=== PATIENT | male | born 1960 | race Caucasian/White ===

== ENCOUNTER 2018-02-16 00:49 | Emergency (ER) | payer OTHER ==
[2018-02-16 04:13] LABS: BUN/Creatinine Ratio 19; Blood Urea Nitrogen 17 mg/dL (9-20); Calcium 9.1 mg/dL (8.4-10.2); Hemolysis Index 16
[2018-02-16 04:20] LABS: Hematocrit 45.6 % (35.5-45.6); Hemoglobin 15.8 gm/dl (11.8-15.2); Mean Corpuscular HGB Conc 35 % (32-34); Mean Corpuscular Hemoglobin 30 pg (28-32); Mean Corpuscular Volume 88 fl (84-94); Red Blood Count 5.21 M/mm3 (3.65-5.03)
[2018-02-16 04:21] LABS: Eosinophils % (Auto) 1.9 % (0.0-4.3); Lymphocytes % (Auto) 43.8 % (13.4-35.0); Monocytes % (Auto) 10.5 % (0.0-7.3); Platelet Count 232 K/mm3 (140-440); Red Cell Distribution Width 13.3 % (13.2-15.2)
[2018-02-16 04:22] LABS: Basophils % (Auto) 0.8 % (0.0-1.8); Eosinophils # (Auto) 1.9 K/mm3 (0.0-0.4); Lymphocytes # (Auto) 43.8 K/mm3 (1.2-5.4); Monocytes # (Auto) 10.5 K/mm3 (0.0-0.8)
--- NOTE | 2018-02-16 06:35 | Emergency Department Report ---
ED General Adult HPI - General Chief complaint: High BP Stated complaint: POSS HIGH BP Time Seen by Provider: 02/16/18 06:35 Source: patient Mode of arrival: Ambulatory Limitations: No Limitations - History of Present Illness Initial comments: The patient came to the emergency room because his blood pressure is high. He denies any chest pain, shortness of breath, abdominal pain, nausea or vomiting. -: Sudden Severity scale (0 -10): 0 Consistency: constant Improves with: none Worsens with: none Associated Symptoms: denies other symptoms Treatments Prior to Arrival: none - Related Data Home Medications Medication Instructions Recorded Confirmed Last Taken Carvedilol 12.5 mg PO BID 02/16/18 02/16/18 02/16/18 Furosemide [Lasix TAB] 40 mg PO BID 02/16/18 02/16/18 02/16/18 Olmesartan (Nf) [Benicar (Nf)] 40 mg PO BID 02/16/18 02/16/18 02/16/18 Potassium Chloride [K-Dur] 40 meq PO BID 02/16/18 02/16/18 02/15/18 Previous Rx's Medication Instructions Recorded Last Taken Type Aspirin [Aspir-Low] 81 mg PO DAILY #30 tablet. 02/16/18 Unknown Rx cloNIDine [Catapres] 0.1 mg PO BID #60 tablet 02/16/18 Unknown Rx Allergies Allergy/AdvReac Type Severity Reaction Status Date / Time No Known Allergies Allergy Unverified 02/16/18 02:47 ED Review of Systems ROS: Stated complaint: POSS HIGH BP Other details as noted in HPI Comment: All other systems reviewed and negative Constitutional: denies: chills, fever Eyes: denies: eye pain ENT: denies: ear pain Respiratory: orthopnea. denies: cough, shortness of breath Cardiovascular: denies: chest pain, palpitations, dyspnea on exertion Endocrine: no symptoms reported Gastrointestinal: denies: abdominal pain, nausea, vomiting, diarrhea, constipation Genitourinary: denies: urgency, dysuria, frequency Musculoskeletal: denies: back pain, joint swelling Skin: denies: rash, lesions Neurological: denies: headache, weakness, numbness Psychiatric: denies: anxiety, depression Hematological/Lymphatic: denies: easy bleeding, easy bruising ED Past Medical Hx - Past Medical History Previous Medical History?: Yes Hx Hypertension: Yes - Surgical History Past Surgical History?: Yes Additional Surgical History: rt eye - Social History Smoking Status: Never Smoker Substance Use Type: Alcohol - Medications Home Medications: Home Medications Medication Instructions Recorded Confirmed Last Taken Type Aspirin [Aspir-Low] 81 mg PO DAILY #30 tablet. 02/16/18 Unknown Rx Carvedilol 12.5 mg PO BID 02/16/18 02/16/18 02/16/18 History Furosemide [Lasix TAB] 40 mg PO BID 02/16/18 02/16/18 02/16/18 History Olmesartan (Nf) [Benicar (Nf)] 40 mg PO BID 02/16/18 02/16/18 02/16/18 History Potassium Chloride [K-Dur] 40 meq PO BID 02/16/18 02/16/18 02/15/18 History cloNIDine [Catapres] 0.1 mg PO BID #60 tablet 02/16/18 Unknown Rx ED Physical Exam - General Limitations: No Limitations General appearance: alert, in no apparent distress - Head Head exam: Present: atraumatic, normocephalic, normal inspection - Eye Eye exam: Present: normal appearance, PERRL, EOMI Pupils: Present: normal accommodation - ENT ENT exam: Present: normal exam, normal orophraynx, mucous membranes moist - Neck Neck exam: Present: normal inspection, full ROM. Absent: tenderness - Respiratory Respiratory exam: Present: normal lung sounds bilaterally. Absent: respiratory distress, wheezes, rales, rhonchi, stridor - Cardiovascular Cardiovascular Exam: Present: regular rate, normal rhythm, normal heart sounds - GI/Abdominal GI/Abdominal exam: Present: soft, normal bowel sounds. Absent: distended, tenderness, guarding, rebound, rigid - Extremities Exam Extremities exam: Present: normal inspection, full ROM, normal capillary refill , pedal edema. Absent: tenderness - Back Exam Back exam: Present: normal inspection, full ROM. Absent: tenderness - Neurological Exam Neurological exam: Present: alert, oriented X3, CN II-XII intact - Psychiatric Psychiatric exam: Present: normal affect, normal mood - Skin Skin exam: Present: warm, dry, intact, normal color. Absent: rash ED Course Vital Signs 02/16/18 02/16/18 02/16/18 02:47 06:28 06:30 Temperature 97.9 F 98.0 F Pulse Rate 85 79 Respiratory 16 Rate Blood Pressure 168/112 189/110 Blood Pressure 190/101 [Left] O2 Sat by Pulse 98 97 94 Oximetry 02/16/18 02/16/18 02/16/18 07:31 08:01 08:31 Temperature Pulse Rate 80 81 79 Respiratory 25 H 25 H 21 Rate Blood Pressure 194/106 200/113 185/85 Blood Pressure [Left] O2 Sat by Pulse 94 92 93 Oximetry 02/16/18 02/16/18 02/16/18 09:01 09:31 10:01 Temperature Pulse Rate 77 81 77 Respiratory 26 H 26 H 29 H Rate Blood Pressure 163/74 154/85 144/81 Blood Pressure [Left] O2 Sat by Pulse 91 96 87 Oximetry ED Medical Decision Making - Lab Data Result diagrams: 02/16/18 03:28 02/16/18 03:28 - Radiology Data Radiology results: report reviewed, image reviewed - Medical Decision Making Hypertension. Congestive heart failure. Critical care attestation.: If time is entered above; I have spent that time in minutes in the direct care of this critically ill patient, excluding procedure time. ED Disposition Clinical Impression: CHF (congestive heart failure) Qualifiers: Heart failure type: unspecified Heart failure chronicity: chronic Qualified Code(s): I50.9 - Heart failure, unspecified Hypertension Qualifiers: Hypertension type: unspecified Qualified Code(s): I10 - Essential (primary) hypertension Disposition: -01 TO HOME OR SELFCARE Is pt being admited?: No Does the pt Need Aspirin: Yes Condition: Stable Instructions: Heart Failure (ED), Hypertension (ED) Additional Instructions: Please follow up with your regular doctor today. Return to the ED if your condition worsens. Prescriptions: Aspirin [Aspir-Low] 81 mg PO DAILY #30 tablet. cloNIDine [Catapres] 0.1 mg PO BID #60 tablet Referrals: PRIMARY CARE, [Primary Care Provider] - 3-5 Days Time of Disposition: 10:48
[2018-02-16] MEDS ORDERED: LASIX IV ONE (07:04)
[2018-02-16] MEDS ORDERED: BABY ASPIRIN PO ONE (07:04)
[2018-02-16] MEDS ORDERED: CATAPRES PO ONE (07:04)
[2018-02-16 07:26] LABS: Bilirubin,Urine NEG (Negative); Blood,Urine SM (Negative); Color,Urine Yellow (Yellow); Mucus,Urine FEW /HPF; Urobilinogen,Urine < 2.0 mg/dL (<2.0); WBC,Urine < 1.0 /HPF (0.0-6.0)
--- NOTE | 2018-02-16 07:56 | XRay Report ---
AP CHEST: HISTORY: Hypertension Heart size and central pulmonary veins are borderline. The lungs are clear. No evidence for pneumonia, CHF or pneumothorax. The bony structures are within normal limits. IMPRESSION: Borderline heart size and pulmonary venous structures. No CHF.
[2018-02-16 07:58] LABS: INR 0.92 (0.87-1.13)
[2018-02-16 07:59] LABS: Partial Thromboplastin Time 25.2 Sec. (24.2-36.6)
[2018-02-16 10:19] VITALS: BP 144/81
== END 2018-02-16 11:30 | disposition home or self-care (01) ==
LOC: ED 00:49
DX: I11.0 Hypertensive heart disease with heart failure (principal); I50.9 Heart failure, unspecified
CPT/HCPCS: 36415; 71045; 80048; 81001; 83880; 84484; 85025; 85610; 85730; 96374; 99284; J1940

== ENCOUNTER 2018-12-22 12:31 | Emergency (ER) | payer OTHER ==
[2018-12-22] MEDS ORDERED: CATAPRES PO ONE (12:56)
[2018-12-22] MEDS ORDERED: LASIX IV ONE (12:56)
--- NOTE | 2018-12-22 13:02 | Emergency Department Report ---
ED General Adult HPI - General Chief complaint: Extremity Injury, Upper Stated complaint: CHEST PAIN Time Seen by Provider: 12/22/18 12:48 Source: patient Mode of arrival: Ambulatory Limitations: No Limitations - History of Present Illness Initial comments: 58 year old male with a past medical history obesity and hypertension presents to the hospital complaining of elevated blood pressure. Patient takes his blood pressure daily and noticed it was high today. For the past 3 days he's been out Lasix and other BP/diuretic medication. The past 3 days he has been having worsening lower extremity swelling. He has complaints of paresthesias to the fo urth and fifth fingers of his left hand. He denies chest pain, shortness of breath, blurred vision, or headache. Patient did take his Benicar 30 minutes prior to arrival. pt states he takes clonidine 0.5 mg every other day. Severity scale (0 -10): 10 - Related Data Previous Rx's Medication Instructions Recorded Last Taken Type Aspirin [Aspir-Low] 81 mg PO DAILY #30 tablet. 02/16/18 Unknown Rx Furosemide [Lasix TAB] 40 mg PO BID #60 tablet 12/22/18 Unknown Rx Olmesartan (Nf) [Benicar] 40 mg PO DAILY #30 tablet 12/22/18 Unknown Rx Potassium Chloride [K-Dur] 20 meq PO DAILY #14 tablet 12/22/18 Unknown Rx cloNIDine [Catapres] 0.2 mg PO BID #60 tablet 12/22/18 Unknown Rx Allergies Allergy/AdvReac Type Severity Reaction Status Date / Time No Known Allergies Allergy Verified 12/22/18 12:32 ED Review of Systems ROS: Stated complaint: CHEST PAIN Other details as noted in HPI Comment: All other systems reviewed and negative ED Past Medical Hx - Past Medical History Hx Hypertension: Yes - Surgical History Additional Surgical History: rt eye - Social History Smoking Status: Never Smoker Substance Use Type: Alcohol - Medications Home Medications: Home Medications Medication Instructions Recorded Confirmed Last Taken Type Aspirin [Aspir-Low] 81 mg PO DAILY #30 tablet. 02/16/18 12/22/18 Unknown Rx Furosemide [Lasix TAB] 40 mg PO BID #60 tablet 12/22/18 Unknown Rx Olmesartan (Nf) [Benicar] 40 mg PO DAILY #30 tablet 12/22/18 Unknown Rx Potassium Chloride [K-Dur] 20 meq PO DAILY #14 tablet 12/22/18 Unknown Rx cloNIDine [Catapres] 0.2 mg PO BID #60 tablet 12/22/18 Unknown Rx ED Physical Exam - General Limitations: No Limitations - Other Other exam information: General: No limitations, patient is alert in no acute distress Head exam: Atraumatic, normocephalic Eyes exam: Normal appearance, pupils equal reactive to light, extraocular movements intact ENT: Moist mucous membrane, normal oropharynx Neck exam: Normal inspection, full range of motion, no meningismus nontender Respiratory exam: Clear to auscultation bilateral, no wheezes, rales, crackles Cardiovascular: Normal rate and rhythm, normal heart sounds Abdomen: Soft, nondistended, and nontender, with normal bowel sounds, no rebound, or guarding Extremity: Full range of motion normal inspection no deformity, bilateral lower extremity swelling Back: Normal Inspection, full range of motion, no tenderness Neurologic: Alert, oriented x3, cranial nerves intact, 5/5 upper and lower extremity strength. Sensation to pinprick is intact and equal bilaterally. Psychiatric: normal affect, normal mood Skin: Warm, dry, intact ED Course Vital Signs 12/22/18 12/22/18 12:43 14:29 Temperature 98.4 F Pulse Rate 103 H 90 Respiratory 22 20 Rate Blood Pressure 239/141 160/104 [Left] O2 Sat by Pulse 98 97 Oximetry ED Medical Decision Making - Lab Data Result diagrams: 12/22/18 13:13 12/22/18 13:13 Lab Results 12/22/18 12/22/18 12/22/18 Range/Units 13:13 13:13 13:13 WBC 7.0 (4.5-11.0) K/mm3 RBC 4.91 (3.65-5.03) M/mm3 Hgb 15.4 H (11.8-15.2) gm/dl Hct 42.7 (35.5-45.6) % MCV 87 (84-94) fl MCH 31 (28-32) pg MCHC 36 H (32-34) % RDW 13.7 (13.2-15.2) % Plt Count 248 (140-440) K/mm3 PT 12.7 (12.2-14.9) Sec. INR 0.98 (0.87-1.13) Sodium 137 (137-145) mmol/L Potassium 3.6 (3.6-5.0) mmol/L Chloride 99.8 (98-107) mmol/L Carbon Dioxide 23 (22-30) mmol/L Anion Gap 18 mmol/L BUN 11 (9-20) mg/dL Creatinine 0.9 (0.8-1.5) mg/dL Estimated GFR > 60 ml/min BUN/Creatinine Ratio 12 % Glucose 98 (75-100) mg/dL Calcium 8.4 (8.4-10.2) mg/dL Troponin T < 0.010 (0.00-0.029) ng/mL - EKG Data -: EKG Interpreted by Me EKG shows normal: sinus rhythm, axis (qrs 14), QRS complexes (qrsd 110), ST-T waves (no stemi) Rate: normal (93) - EKG Data When compared to previous EKG there are: previous EKG unavailable - Radiology Data Radiology results: report reviewed CHEST 1 VIEW INDICATION: Hypertension COMPARISON: AP chest report dated 02/16/2018 FINDINGS: Support devices: None. Heart: Borderline to mild cardiomegaly. Lungs/Pleura: Mild central pulmonary venous congestion is identified. The lungs are clear. No evidence for infiltrate, pleural effusion or pneumothorax. Additional findings: None. IMPRESSION: Mild cardiomegaly and central pulmonary venous congestion. Lungs clear. - Medical Decision Making Patient had significant diuresis after IV Lasix and improved blood pressure after clonidine 0.2 mg. Patient's medications will be refilled. His Lasix 40 mga day will be continued. His office that he takes Benicar 40 mg twice a day. They recommended maximum daily dose is 40 mg per day. Patient will be restarted on 40 mg once a day. Patient will also be placed on clonidine 0.2 mg twice a day for blood pressure control. I explained that he is to continue to monitor his blood pressure and keep a log and take the info to his PMD for med adjustment. potassium changed from 20mg bid to 20mg qd. pt will need close f/u since his med doses are atypical. I made adjustments based on recommended doses and advised follow-up with primary care doctor - Differential Diagnosis hypertensive emergency, medication noncomplianc, radiculopathy Critical Care Time: No Critical care attestation.: If time is entered above; I have spent that time in minutes in the direct care of this critically ill patient, excluding procedure time. ED Disposition Clinical Impression: Uncontrolled hypertension, Paresthesia Disposition: DC-01 TO HOME OR SELFCARE Is pt being admited?: No Does the pt Need Aspirin: No Condition: Stable Instructions: Hypertension (ED), Paresthesia (ED) Additional Instructions: Take the medication as prescribed. Follow up with your doctor or the clinic/doctor provided. Return if symptoms worsen as indicated by your discharge instructions. Keep a log of your blood pressure with 3 times a day measurements. Follow-up with the primary care doctor with this information for further medication adjustment. Prescriptions: Olmesartan (Nf) [Benicar] 40 mg PO DAILY #30 tablet cloNIDine [Catapres] 0.2 mg PO BID #60 tablet Potassium Chloride [K-Dur] 20 meq PO DAILY #14 tablet Furosemide [Lasix TAB] 40 mg PO BID #60 tablet Referrals: ESTRELLITA ROMEROT[facility] MD [facility] [Referring] - 3-5 Days PEDRO HOU DO [Staff Physician] - 3-5 Days Time of Disposition: 15:04
[2018-12-22 13:34] LABS: Mean Corpuscular HGB Conc 36 % (32-34); Mean Corpuscular Volume 87 fl (84-94); Platelet Count 248 K/mm3 (140-440); Red Blood Count 4.91 M/mm3 (3.65-5.03); Red Cell Distribution Width 13.7 % (13.2-15.2)
[2018-12-22 13:44] LABS: Hematocrit 42.7 % (35.5-45.6); Hemoglobin 15.4 gm/dl (11.8-15.2)
[2018-12-22 13:48] LABS: INR 0.98 (0.87-1.13)
[2018-12-22 13:57] LABS: BUN/Creatinine Ratio 12; Blood Urea Nitrogen 11 mg/dL (9-20); Calcium 8.4 mg/dL (8.4-10.2); Hemolysis Index 52
--- NOTE | 2018-12-22 14:37 | XRay Report ---
CHEST 1 VIEW INDICATION: Hypertension COMPARISON: AP chest report dated 02/16/2018 FINDINGS: Support devices: None. Heart: Borderline to mild cardiomegaly. Lungs/Pleura: Mild central pulmonary venous congestion is identified. The lungs are clear. No evidenc e for infiltrate, pleural effusion or pneumothorax. Additional findings: None. IMPRESSION: Mild cardiomegaly and central pulmonary venous congestion. Lungs clear. Signer Name: Romain Heath Jr, MD Signed: 12/22/2018 2:32 PM Workstation Name: [id number]
[2018-12-22 15:19] VITALS: BP 178/108
[2018-12-22 16:24] LABS: Basophils % (Manual) 0 % (0.0-1.8); Total Cells Counted 100
[2018-12-22 16:26] LABS: Anisocytosis Few; Stomatocytes Rare
== END 2018-12-22 15:19 | disposition home or self-care (01) ==
LOC: ED 12:31
DX: I10 Essential (primary) hypertension (principal); R20.2 Paresthesia of skin; Z79.899 Other long term (current) drug therapy
CPT/HCPCS: 36415; 71045; 80048; 84484; 85007; 85025; 85610; 93005; 93010; 96374; 99284; J1940

== ENCOUNTER 2019-09-03 17:02 | Emergency (ER) | payer SELFPAY ==
[2019-09-03] MEDS ORDERED: hydrALAZINE 20 MG/1 ML INJ IV ONE ×2 (17:31→19:41)
[2019-09-03] MEDS ORDERED: OXYMETAZOLINE 0.05% NASAL SPRAY NS ONE (17:31)
--- NOTE | 2019-09-03 17:42 | Emergency Department Report ---
HPI - General Chief Complaint: Nosebleed Time Seen by Provider: 09/03/19 17:31 - HPI HPI: 58-year-old male presents to the emergency department via EMS from home with complaint of nasal bleeding that started about 1 hour prior to presentation. The patient also presents with elevated blood pressure despite taking his blood pressure medications this morning. He has a history of hypertension. He has otherwise not taken anything for symptoms prior to presentation. His primary care physician is Dr. Hermann Guthrie. ED Past Medical Hx - Past Medical History Hx Hypertension: Yes - Surgical History Additional Surgical History: rt eye - Social History Smoking Status: Former Smoker Substance Use Type: None - Medications Home Medications: Home Medications Medication Instructions Recorded Confirmed Last Taken Type Aspirin [Aspir-Low] 81 mg PO DAILY #30 tablet. 02/16/18 12/22/18 Unknown Rx Furosemide [Lasix TAB] 40 mg PO BID #60 tablet 12/22/18 Unknown Rx Olmesartan (Nf) [Benicar] 40 mg PO DAILY #30 tablet 12/22/18 Unknown Rx Potassium Chloride [K-Dur] 20 meq PO DAILY #14 tablet 12/22/18 Unknown Rx cloNIDine [Catapres] 0.2 mg PO BID #60 tablet 12/22/18 Unknown Rx ED Review of Systems ROS: Stated complaint: EPISTAXIS Other details as noted in HPI Comment: All other systems reviewed and negative Constitutional: denies: chills, fever ENT: epistaxis. denies: throat pain Respiratory: denies: cough, shortness of breath Cardiovascular: denies: chest pain Gastrointestinal: denies: abdominal pain, vomiting Neurological: denies: headache, weakness Hematological/Lymphatic: easy bleeding. denies: easy bruising Physical Exam - Physical Exam Vital Signs: Vital Signs 09/03/19 09/03/19 17:24 17:27 Temperature 98.1 F Respiratory 18 18 Rate Blood Pressure 190/108 O2 Sat by Pulse 99 Oximetry Physical Exam: GENERAL: The patient is well-developed well-nourished. HENT: Normocephalic. Atraumatic. Patient has moist mucous membranes. There is moderate to severe bilateral epistaxis. There is some blood also coming out of the oropharynx. EYES: Extraocular motions are intact. Pupils equal reactive to light bilaterally. NECK: Supple. Trachea is midline. CHEST/LUNGS: Clear to auscultation. There is no respiratory distress noted. HEART/CARDIOVASCULAR: Regular. There is no tachycardia. ABDOMEN: Abdomen is soft, nontender. Patient has normal bowel sounds. SKIN: Skin is warm and dry. NEURO: The patient is awake, alert, and oriented. The patient is cooperative. The patient has no focal neurologic deficits. Normal speech. MUSCULOSKELETAL: There is no tenderness or deformity. There is no evidence of acute injury. ED Course Vital Signs 09/03/19 09/03/19 17:24 17:27 Temperature 98.1 F Respiratory 18 18 Rate Blood Pressure 190/108 O2 Sat by Pulse 99 Oximetry - Consultations Consultation #1: I spoke with the wildlife conservation officer at [facility], Dr. Estrada, who is happy to consult on this patient but feels that she go to the medical service secondary to the patient's hypertensive issues. I then spoke with the hospitalist on-call, Dr. Cueva, who has accepted the patient to the medicine service for transfer and admission. 09/03/19 22:13 - Procedure Description Procedures done: Procedure: Bilateral nasal packing. Both nasal passages were packed with a rapid Rhino 7.5 cm. Afrin was sprayed into the nasal passages prior to insertion of the rapid Rhino. It was inserted all the way until the fibers were at the distal tip of the naris and then the bulbous were inflated with about 5 cc of fluid. The patient tolerated the procedure well. ED Medical Decision Making - Lab Data Result diagrams: 09/03/19 17:46 09/03/19 17:46 - Medical Decision Making This patient presents with moderate to severe bilateral epistaxis that started about 1 hour prior to arrival. He also presents with severely elevated blood pressure despite alleged compliance with his antihypertensive medications. The patient had said that the bleeding originally started on the right side so this area was packed with a rapid Rhino after he received some Afrin. This temporarily slowed up some of the bleeding to the left side, but did completely stop the bleeding from the right side. The patient was given a dose of hydralazine, and then a dose of labetalol which did improve the blood pressure t o a more reasonable level. However the patient then started having moderate to severe bleeding to the left nasal passage and some coming down through the oropharynx/mouth. For this reason the left side was then packed with Afrin and a rapid Rhino as well. With the bilateral packing, the patient still continued to have some blood and clots coming out the mouth concerning for a posterior bleed. Overall the patient received 20 mg of labetalol, 20 mg of hydralazine and a dose of Vasotec and the blood pressure is currently much better controlled at 149/88. The bleeding has greatly slowed down. There is some mild oozing around the left nasal packing and the patient is still spitting up a few small clots. Given the bilateral nasal packing ,the patient will need to be seen by otolaryngology, which is a specialty that we do not have at this facility. As per the consultation section, the patient has been accepted for transfer and admission to [facility]. The patient has been given a dose of clindamycin secondary to the nasal packing in place. - Differential Diagnosis Anterior versus posterior bleed, hypertensive crisis Critical Care Time: Yes Critical care time in (mins) excluding proc time.: 35 Critical care attestation.: If time is entered above; I have spent that time in minutes in the direct care of this critically ill patient, excluding procedure time. Critical care time was spent on this patient in doing his initial evaluation, multiple re- evaluations, ordering and interpretation of labs, multiple doses of IV antihypertensive medication, discussion with the wildlife conservation officer and [facility] hospitalist service. Critical Care Time: 35 minutes ED Disposition Clinical Impression: Severe epistaxis, Hypertensive urgency Disposition: DC/TX-70 ANOTHER TYPE HLTHCARE Is pt being admited?: No Condition: Fair Time of Disposition: 22:20
[2019-09-03 18:00] LABS: Basophils # (Auto) 0.1 K/mm3 (0.0-0.1); Basophils % (Auto) 1.1 % (0.0-1.8); Eosinophils # (Auto) 0.1 K/mm3 (0.0-0.4); Eosinophils % (Auto) 1.4 % (0.0-4.3); Hemoglobin 15.2 gm/dl (11.8-15.2); Lymphocytes # (Auto) 2.2 K/mm3 (1.2-5.4); Lymphocytes % (Auto) 26.5 % (13.4-35.0); Monocytes # (Auto) 0.5 K/mm3 (0.0-0.8); Monocytes % (Auto) 6.4 % (0.0-7.3)
[2019-09-03 18:08] LABS: Hematocrit 45.2 % (35.5-45.6); Mean Corpuscular HGB Conc 35 % (32-34); Mean Corpuscular Volume 86 fl (84-94); Platelet Count 248 K/mm3 (140-440); Red Blood Count 5.23 M/mm3 (3.65-5.03); Red Cell Distribution Width 13.4 % (13.2-15.2)
[2019-09-03 18:12] LABS: INR 0.97 (0.87-1.13); Partial Thromboplastin Time 27.1 Sec. (24.2-36.6)
[2019-09-03 18:18] LABS: BUN/Creatinine Ratio 20; Blood Urea Nitrogen 16 mg/dL (9-20); Calcium 9.5 mg/dL (8.4-10.2); Hemolysis Index 9
[2019-09-03] MEDS ORDERED: MORPHINE 4 MG/1 ML INJ IV ONE (19:59)
[2019-09-03] MEDS ORDERED: ENALAPRILAT 2.5 MG/2 ML INJ IV ONE (21:00)
[2019-09-03 22:40] VITALS: BP 139/81
== END 2019-09-03 23:15 | disposition other institution (70) ==
LOC: ED 17:02
DX: R04.0 Epistaxis (principal); I16.0 Hypertensive urgency; Z87.891 Personal history of nicotine dependence; Z79.82 Long term (current) use of aspirin; Z79.899 Other long term (current) drug therapy
CPT/HCPCS: 30901; 36415; 80048; 85025; 85610; 85730; 96365; 96375; 96376; 99291; J0360; J2270